=== PATIENT | male | born 1940 | race Caucasian/White ===

== ENCOUNTER 2020-02-28 14:38 | Emergency (ER) | payer MEDICARE, SELFPAY ==
--- NOTE | ~2020-02-28 | XR_ITS ---
XR foot RT min 3V DATE: 02/28/2020 16:17 INDICATION: Swelling for 2 weeks. No known injury. TECHNIQUE: 4 views COMPARISON: None FINDINGS: There is prominent soft tissue swelling, particularly evident at the dorsum of the foot. No fracture, dislocation, periosteal reaction or bone destruction is detected. Mild osteophytic changes are noted including tarsal, tarsometatarsal and first metatarsophalangeal gifty ints. IMPRESSION: Prominent nonspecific soft tissue swelling of the foot Mild polyarticular osteoarthritis Reviewed, dictated and finalized at location A.
--- NOTE | ~2020-02-28 | XR_ITS ---
XR tibia fibula RT 2V DATE: 02/28/2020 16:18 INDICATION: Medial distal tibial pain TECHNIQUE: AP and lateral views COMPARISON: None FINDINGS: No fracture or dislocation, periosteal reaction or bone destruction. Normal alignment at th e knee and ankle joints. There is soft tissue swelling at the ankle. Distal femoral artery and popliteal artery calcification. IMPRESSION: No significant abnormality of the tibia or fibula Ankle soft tissue swelling. Reviewed, dictated and finalized at location A.
[2020-02-28 15:09] VITALS: BP 150/82; PULSE 67; RESP 18; TEMP 36.6; O2SAT 99
--- NOTE | 2020-02-28 15:55 | ED.LOWEXIN ---
HPI - Extremity Injury (Lower) General Chief Complaint: Extremity Injury, Lower Stated Complaint: right leg pain Time Seen by Provider: 02/28/20 16:05 Source: patient and RN notes reviewed Mode of arrival: ambulatory Limitations: no limitations History of Present Illness HPI Narrative: 79 year old male who presents to [facility] with complaints of pain with ambulation to the bottom of his right foot and also increase in swelling to his lower leg and foot. Patient was seen in the emergency room at [facility] but he became upset about the wait and he left before receiving x-rays or completed visit.Patient states that for the past week he has notd increase in swelling to his right foot and lower leg with bruising around his ankle and small reddened skin area noted to right lower leg. Patient states that he usually has some swelling to his lower extremities but has incrase. He states that he id do the elliptical bicycle for exercise at [employer] but denies any known injury. Patient has negative Saravanan's sign to right leg. MD complaint: foot injury Onset (ago): week(s) Injury: Right: foot Type of Injury: unknown Severity: moderate Severity scale (1-10): 4 Relieving factors: rest Exacerbating factors: weight bearing Associated symptoms: swelling Other symptoms: none Treatments prior to arrival: other (elevation of legs) Related Data Home Medications Medication Instructions Recorded Confirmed aspirin 325 mg PO DAILY 02/28/20 02/28/20 atorvastatin 40 mg PO DAILY 02/28/20 02/28/20 docusate sodium [Stool Softener] 100 mg PO BID 02/28/20 02/28/20 finasteride 5 mg PO DAILY 02/28/20 02/28/20 hydrochlorothiazide 25 mg PO DAILY 02/28/20 02/28/20 insulin detemir U-100 12 unit SUBCUT HS 02/28/20 02/28/20 lisinopril 20 mg PO BID 02/28/20 02/28/20 melatonin 3 mg PO HS PRN 02/28/20 02/28/20 spironolactone 25 mg PO DAILY 02/28/20 02/28/20 tamsulosin 0.4 mg PO HS 02/28/20 02/28/20 Allergies Allergy/AdvReac Type Severity Reaction Status Date / Time clindamycin AdvReac Nausea Verified 02/28/20 15:05 Review of Systems Review of Systems: Narrative: CONSTITUTIONAL: Denies fever, chills, or sweats. EYES: Denies visual changes, redness, or discharge. ENT: Denies rhinorrhea, congestion, sore throat, or otalgia. CARDIOVASCULAR: Denies chest pain, palpitations, 1+ pitting edema to left foot, 2+pitting pretibial and pedal pulses palpable to left foot and per doppler on right. RESPIRATORY: Denies cough or dyspnea. GASTROINTESTINAL: Denies abdominal pain, nausea, vomiting, or diarrhea. GENITOURINARY: Denies dysuria or hematuria. SKIN: Denies rash or itching red area noted to inner aspect of ri8ght foot MUSCULOSKELETAL: Denies back pain, joint pain, or myalgia. NEUROLOGIC: Denies headache, numbness, or weakness. PSYCHIATRIC: Denies anxiety or depression. All systems reviewed & are unremarkable except as noted in HPI and below PMFSH Past Medical History Medical History (Updated 03/04/20 @ 20:09 by Millicent Perez NP) Abdominal aortic aneurysm Benign prostate hyperplasia Colon cancer Diabetes mellitus, type II Hyperlipidemia Hypertension Renal insufficiency TIA (transient ischemic attack) Surgical History Surgical History (Updated 02/28/20 @ 16:32 by Millicent Perez NP) H/O colectomy History of lumbar spinal fusion Hx of cataract removal with insertion of prosthetic lens Social History Social History (Updated 02/28/20 @ 16:33 by Millicent Perez NP) Smoking status: Former smoker Tobacco type: cigarettes Smoking end date: 06/23/90 Alcohol intake: former Substance use: never Living arrangements: alone Occupation/Education: retired Gender identity (if verbalized by the patient): Male Comments At time of signature, agree with nursing past medical, surgical, social history. There is no relevant family history pertinent to the presenting complaint Exam Narrative: Exam Narrative: GENERAL: Well-appe
== END 2020-02-28 16:45 | disposition home or self-care (01) ==
PROVIDERS: Emergency Provider Registered Nurse; PCP Internal Medicine
DX: S90.31XA Contusion of right foot, initial encounter (principal); X58.XXXA Exposure to other specified factors, initial encounter; L03.115 Cellulitis of right lower limb; Z87.891 Personal history of nicotine dependence; N40.0 Benign prostatic hyperplasia without lower urinary tract symptoms; E11.9 Type 2 diabetes mellitus without complications; E78.5 Hyperlipidemia, unspecified; I10 Essential (primary) hypertension; Z85.038 Personal history of other malignant neoplasm of large intestine; Z79.82 Long term (current) use of aspirin; Z79.84 Long term (current) use of oral hypoglycemic drugs; Z79.4 Long term (current) use of insulin
CPT/HCPCS: 73590; 73630; 99203; G0463